=== PATIENT | female | born 1960 | race Asian ===

== ENCOUNTER → 2016-12-21 | Outpatient (CLI) | payer OTHER | LOC: BMCIMAGING 16:49 | PROVIDERS: ATTEND Internal Medicine Rheumatology | DX: S33.140A Subluxation of L4/L5 lumbar vertebra, initial encounter (principal); M47.896 Other spondylosis, lumbar region ==

== ENCOUNTER 2017-12-13 14:22 | Emergency (ER) | payer OTHER ==
[2017-12-13 14:29] VITALS: BP 142/102; PULSE 78; RESP 16; TEMP 97.7; O2SAT 97
== END 2017-12-13 15:24 | disposition left against medical advice (07) ==
DX: Z53.21 Procedure and treatment not carried out due to patient leaving prior to being seen by health care provider (principal)

== ENCOUNTER → 2018-11-02 | Outpatient (CLI) | payer OTHER | LOC: FIMAGING 15:28 | PROVIDERS: ATTEND Family Medicine | DX: Z12.31 Encounter for screening mammogram for malignant neoplasm of breast (principal) ==